=== PATIENT | male | born 1955 | race Caucasian/White ===

== ENCOUNTER 2017-05-30 12:39 | Emergency (ER) | payer OTHER ==
[2017-05-30 12:46] VITALS: BP 147/95
--- NOTE | 2017-05-30 14:03 | ED ---
Upper Extremity Pain - HPI Summary HPI Summary: Rt hand dominant pt here w/ injury to 5th digit last night while playing with his grandson - jammed it into a speaker. Tingling for 30 minutes after injury - recovered full sensation. Limited movement d/t pain, stiffness/swelling. Has not tried anything to help with sx yet. - History of Current Complaint Chief Complaint: EDExtremityUpper Stated Complaint: RT HAND/FINGER INJURY Time Seen by Provider: 05/30/17 13:41 Hx Obtained From: Patient - Allergies/Home Medications Allergies/Adverse Reactions: Allergies Allergy/AdvReac Type Severity Reaction Status Date / Time Penicillins [PCN] Allergy Unknown Verified 01/11/14 22:24 Reaction Details PMH/Surg Hx/FS Hx/Imm Hx Previously Healthy: Yes Endocrine/Hematology History: Denies: Hx Anticoagulant Therapy, Hx Blood Disorders, Hx Diabetes Cardiovascular History: Denies: Hx Hypertension, Hx Pacemaker/ICD Sensory History: Denies: Hx Hearing Aid Psychiatric History: Denies: Hx Panic Disorder - Surgical History Surgery Procedure, Year, and Place: WISDOM TEETH REMOVAL Infectious Disease History: No Infectious Disease History: Denies: Traveled Outside the in Last 30 Days - Social History 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 Lives: With Family Alcohol Use: Weekly Hx Substance Use: No Substance Use Type: Reports: None Hx Tobacco Use: No Smoking Status (MU): Never Smoked Tobacco Review of Systems Positive: no symptoms reported Musculoskeletal: Other - see HPI Positive: Bruising - see HPI Neurological: Other - see HPI Psychological: Normal All Other Systems Reviewed And Are Negative: Yes Physical Exam Triage Information Reviewed: Yes Vital Signs On Initial Exam: Initial Vitals Temp Pulse Resp BP Pulse Ox 98.0 F 70 20 147/95 98 05/30/17 12:42 05/30/17 12:42 05/30/17 12:42 05/30/17 12:42 05/30/17 12:42 Vital Signs Reviewed: Yes Appearance: Positive: Well-Appearing, No Pain Distress, Well-Nourished Skin: Positive: Warm, Dry - ecchymosis over palmar crease of MCP joint and PIP joint - edema of space between joints - no skin breakdown Head/Face: Positive: Normal Head/Face Inspection Eyes: Positive: EOMI ENT: Positive: Hearing grossly normal Respiratory/Lung Sounds: Positive: Breath Sounds Present Cardiovascular: Positive: Pulses are Symmetrical in both Upper and Lower Extremities Musculoskeletal: Positive: Strength/ROM Intact, Limited @ - Rt 5th phalange flexion of PIP and DIP - can move MCP joint, wrist, elbow w/o difficulty Neurological: Positive: Normal, Sensory/Motor Intact, Alert, Oriented to Person Place, Time, CN Intact II-III Psychiatric: Positive: Normal - [place] Coma Scale Coma Scale Total: 15 Diagnostics - Vital Signs Vital Signs Temp Pulse Resp BP Pulse Ox 05/30/17 12:42 98.0 F 70 20 147/95 98 - Laboratory Lab Statement: Any lab studies that have been ordered have been reviewed, and results considered in the medical decision making process. Course/Dx - Diagnoses Provider Diagnoses: Sprain of right little finger Discharge - Discharge Plan Condition: Stable Disposition: HOME Patient Education Materials: Finger Sprain (ED) Referrals: David Mata MD [Medical Doctor] - Additional Instructions: REST, ICE, ELEVATE Take ibuprofen with food for pain Wear splint until seen by PCP or orthopedics. Call today to schedule appointment for 1-2 weeks. *if you develop numbness, tingling, weakness, return to ED
--- NOTE | 2017-05-30 14:27 | RAD ---
Indication: Right fifth finger injury. 3 views of the right fifth digit demonstrates no fracture. No other bone or joint abnormality is identified. IMPRESSION: No fracture of the right fifth digit is noted.
== END 2017-05-30 15:01 | disposition home or self-care (01) ==
LOC: ED 12:39
DX: S63.616A Unspecified sprain of right little finger, initial encounter (principal); W22.8XXA Striking against or struck by other objects, initial encounter; Y93.9 Activity, unspecified; Y92.9 Unspecified place or not applicable; Y99.9 Unspecified external cause status
CPT/HCPCS: 73140; 99282

== ENCOUNTER 2017-10-09 23:00 | Observation (INO) | payer SELFPAY ==
[2017-10-10 00:10] LABS: ABS Basophils 0 10^3/ul (0-0.2); ABS Eosinophils 0.1 10^3/ul (0-0.6); ABS Monocytes 0.7 10^3/ul (0-0.8); ABS Nucleated RBC 0 10^3/ul; Eosinophil % 0.7 % (0-6); Hematocrit 41 % (42-52); Hemoglobin 13.9 g/dl (14.0-18.0); Lymphocyte % 11.9 % (25-47); Mean Corpuscular HGB Conc 34 g/dl (31-36); Mean Corpuscular Hemoglobin 30 pg (27-31); Mean Corpuscular Volume 89 fL (80-94); Mean Platelet Volume 8 um3 (7.4-10.4); Nucleated Red Blood Cells % 0.1; Platelet Count 233 10^3/ul (150-450); Red Blood Count 4.59 10^6/ul (4.0-5.4); Red Cell Distribution Width 13 % (10.5-15); White Blood Count 8.8 10^3/ul (3.5-10.8)
[2017-10-10 00:19] LABS: INR 1.02 (0.77-1.02)
[2017-10-10 00:29] LABS: EGFR Non-African American 88.6 (>60)
[2017-10-10] MEDS ORDERED: Acetaminophen TAB* 325 MG PO PRN (02:39)
[2017-10-10] MEDS ORDERED: Ondansetron INJ* 2 MG/ML VIAL IV PRN (02:39)
[2017-10-10] MEDS ORDERED: Melatonin (NF) 3 MG TAB PO PRN (02:39)
[2017-10-10] MEDS ORDERED: Albuterol 2.5 MG/3 ML NEB.SOL* (0.083%) INH PRN (02:39)
--- NOTE | 2017-10-10 03:04 | HP ---
H&P (Free Text) History and Physical: PCP: Altaf Beatty MD Date/Time: 10/10/2017 0230 CC: "passed out" HPI: Mr Rouse is a 62YO male without chronic medical conditions who was at home around 2200 talking with his girl friend when he suddenly became diaphoretic, pale, and passed out twice, each lasting 1-2 minutes. His girlfriend was able to rouse him via shaking. He recalls some light-headedness and vomited once after EMS arrived, but denies chest pain, SOB, or palpitations. The episode was associated with urinary incontinence and he had N/ T in all 4 extremities for a short time afterwards. His family HX is very concerning for a sister who passed of sudden cardiac at age 50. 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 FamHx: Father: CAD; Sister passed at 50 from sudden cardiac while talking on the phone ROS: as above, otherwise reviewed and all were negative vitals: Vital Signs Temp 36.7 C 10/10/17 03:43 Pulse 63 10/10/17 03:43 Resp 18 10/10/17 03:43 BP 96/53 10/10/17 03:43 Pulse Ox 98 10/10/17 03:43 Intake & Output 10/09/17 10/09/17 10/10/17 11:59 23:59 11:59 Weight 77.111 kg 75.523 kg Constitutional: NAD, normally developed, well-nourished white male HEENM: atraumatic; sclera/conjunctiva: anicteric/clear; hearing: clinically intact; oropharynx: clear, mucosa moist Neck: soft tissue: non-tender; thyroid: normal Pulmonary: clear to auscultation bilaterally, good aeration, no accessory muscle use CV: RR/RR, normal S1S2, no carotid bruit, no jugular venous distention, 2+ B DP/ PT, no edema Abdominal: soft, non-distended, non-tender, no rebound/guarding/rigidity, normoactive bowel sounds, no hepatosplenomegaly or masses, no costovertebral angle tenderness Musculoskeletal: general: grossly intact, no tenderness w/ palpation Integumental: normal appearance and texture of exposed skin Psychiatric orientation: AA&O to PPS affect: calm mood: cooperative eye contact: good content: reliable responses: timely insight: good Testing: Lab Results 10/10/17 10/10/17 10/10/17 Range/Units 00:00 00:00 00:00 WBC 8.8 (3.5-10.8) 10^3/ul RBC 4.59 (4.0-5.4) 10^6/ul Hgb 13.9 L (14.0-18.0) g/dl Hct 41 L (42-52) % MCV 89 (80-94) fL MCH 30 (27-31) pg MCHC 34 (31-36) g/dl RDW 13 (10.5-15) % Plt Count 233 (150-450) 10^3/ul MPV 8 (7.4-10.4) um3 Neut % (Auto) 79.4 (38-83) % Lymph % (Auto) 11.9 L (25-47) % [place] % (Auto) 7.7 H (0-7) % Eos % (Auto) 0.7 (0-6) % Baso % (Auto) 0.3 (0-2) % Absolute Neuts (auto) 7.0 (1.5-7.7) 10^3/ul Absolute Lymphs (auto) 1.0 (1.0-4.8) 10^3/ul Absolute Monos (auto) 0.7 (0-0.8) 10^3/ul Absolute Eos (auto) 0.1 (0-0.6) 10^3/ul Absolute Basos (auto) 0 (0-0.2) 10^3/ul Absolute Nucleated RBC 0 10^3/ul Nucleated RBC % 0.1 INR (Anticoag Therapy) 1.02 (0.77-1.02) APTT 29.6 (26.0-36.3) seconds Sodium 137 (133-145) mmol/L Potassium 3.4 L (3.5-5.0) mmol/L Chloride 105 (101-111) mmol/L Carbon Dioxide 26 (22-32) mmol/L Anion Gap 6 (2-11) mmol/L BUN 17 (6-24) mg/dL Creatinine 0.87 (0.67-1.17) mg/dL Est GFR ( Amer) 114.0 (>60) Est GFR (Non-Af Amer) 88.6 (>60) BUN/Creatinine Ratio 19.5 (8-20) Glucose 105 H (70-100) mg/dL Calcium 8.6 (8.6-10.3) mg/dL Magnesium 2.0 (1.9-2.7) mg/dL Total Bilirubin 0.50 (0.2-1.0) mg/dL AST 19 (13-39) U/L ALT 14 (7-52) U/L Alkaline Phosphatase 63 (34-104) U/L Troponin I 0.00 (<0.04) ng/mL B-Natriuretic Peptide ( - 100) pg/mL Total Protein 6.4 (6.4-8.9) g/dL Albumin 3.7 (3.2-5.2) g/dL Globulin 2.7 (2-4) g/dL Albumin/Globulin Ratio 1.4 (1-3) 10/10/17 Range/Units 00:00 WBC (3.5-10.8) 10^3/ul RBC (4.0-5.4) 10^6/ul Hgb (14.0-18.0) g/dl Hct (42-52) % MCV (80-94) fL MCH (27-31) pg MCHC (31-36) g/dl RDW (10.5-15) % Plt Count (150-450) 10^3/ul MPV (7.4-10.4) um3 Neut % (Auto) (38-83) % Lymph % (Auto) (25-47) % [place] % (Auto) (0-7) % Eos % (Auto) (0-6) % Baso % (Auto) (0-2) % Absolute Neuts (auto) (1.5-7.7) 10^3/ul Absolute Lymphs (auto) (1.0-4.8) 10^3/ul Absolute Monos (auto) (0-0.8) 10^3/ul Absolute Eos (auto) (0-0.6) 10^3/ul Absolute Basos (auto) (0-0.2) 10^3/ul Absolute Nucleated RBC 10^3/ul Nucleated RBC % INR (Anticoag Therapy) (0.77-1.02) APTT (26.0-36.3) seconds Sodium (133-145) mmol/L Potassium (3.5-5.0) mmol/L Chloride (101-111) mmol/L Carbon Dioxide (22-32) mmol/L Anion Gap (2-11) mmol/L BUN (6-24) mg/dL Creatinine (0.67-1.17) mg/dL Est GFR ( Amer) (>60) Est GFR (Non-Af Amer) (>60) BUN/Creatinine Ratio (8-20) Glucose (70-100) mg/dL Calcium (8.6-10.3) mg/dL Magnesium (1.9-2.7) mg/dL Total Bilirubin (0.2-1.0) mg/dL AST (13-39) U/L ALT (7-52) U/L Alkaline Phosphatase (34-104) U/L Troponin I (<0.04) ng/mL B-Natriuretic Peptide 22 ( - 100) pg/mL Total Protein (6.4-8.9) g/dL Albumin (3.2-5.2) g/dL Globulin (2-4) g/dL Albumin/Globulin Ratio (1-3) ECG, personally reviewed: NSR rate 64, no ischemia, QTc 419 CXR, personally reviewed: no acute pathology, R costal gutter not imaged CT brain WO, personally reviewed: no acute finding Impression: 62M presenting with recurrent syncope & family HX of sister w/ sudden cardiac DIAGNOSIS & PLAN Primary recurrent syncope : telemetry : check ECHO in AM : supportive care : consider cardiology consult in AM Admission Rational: observation for syncope work up DVTp: heparin SQ Code Status: full
--- NOTE | 2017-10-10 03:11 | ED ---
Dante Beltran Angela, scribed for Michael Arias on 10/09/17 at 2351 . Syncope/Near Syncope - HPI Summary HPI Summary: This pt is a 62 y/o male presenting to [facility] via EMS for 2 syncopal episodes today at approximately 22:00 today. Pt reports he was sitting on the couch after he finished dinner and dessert when he had a sudden onset of syncope. reports they had smoked a bowl of marijuana prior to pt's syncopal episode. Pt states he had used this same supply of marijuana before. Pt notes that prior to his syncope he felt like he was "hallucinating." went to bring the pt water and by the time she came back, pt had syncopized. states the pt had a syncopal episode for 1-2 minutes. Pt then woke up as was calling 911, but pt had a second syncopal episode that also lasted 1-2 minutes. Pt denies chest pain or SOB prior to or after these episodes. - History Of Current Complaint Hx Obtained From: Patient Onset/Duration: Sudden Onset, Resolved Timing: Minutes - 1-2 Context: Witnessed Activity At Onset: At Rest Associated Head Trauma: No Aggravating Factor(s): Nothing Alleviating Factor(s): Spontaneous Resolution Associated Signs And Symptoms: Negative - Allergies/Home Medications Allergies/Adverse Reactions: Allergies Allergy/AdvReac Type Severity Reaction Status Date / Time Penicillins Allergy Itching Verified 10/09/17 23:08 PMH/Surg Hx/FS Hx/Imm Hx Endocrine/Hematology History: Denies: Hx Anticoagulant Therapy, Hx Blood Disorders, Hx Diabetes Cardiovascular History: Denies: Hx Hypertension, Hx Pacemaker/ICD Sensory History: Denies: Hx Hearing Aid Psychiatric History: Denies: Hx Panic Disorder - Surgical History Surgery Procedure, Year, and Place: WISDOM TEETH REMOVAL - Immunization History Date of Tetanus Vaccine: utd Date of Influenza Vaccine: none Infectious Disease History: No Infectious Disease History: Denies: Traveled Outside the [place] in Last 30 Days - Family History Family History: No FHx of colon CA. - Social History Alcohol Use: Occasionally Hx Substance Use: No Substance Use Type: Reports: Marijuana Substance Use Comment - Amount & Last Used: smokes 3x/week, 1 bowl at a time Hx Tobacco Use: No Smoking Status (MU): Former Smoker Review of Systems Negative: Fever, Chills Negative: Chest Pain Negative: Shortness Of Breath Neurological: Other - "hallucinating" Positive: Syncope All Other Systems Reviewed And Are Negative: Yes Physical Exam - Summary Physical Exam Summary: Appearance: Well appearing, no pain distress Skin: warm, dry, reflects adequate perfusion Head/face: normal Eyes: EOMI, MARIO ENT: normal Neck: supple, nontender Respiratory: CTA, breath sounds present Cardiovascular: RRR, pulses symmetrical Abdomen: nontender, soft Bowel: present Musculoskeletal: normal, strength/ROM intact Neuro: normal, sensory motor intact, A&Ox3 Triage Information Reviewed: Yes Vital Signs On Initial Exam: Initial Vitals Temp Pulse Resp BP Pulse Ox 97.6 F 61 16 112/62 97 10/09/17 23:07 10/09/17 23:07 10/09/17 23:07 10/09/17 23:07 10/09/17 23:07 Vital Signs Reviewed: Yes - Andi Coma Scale Best Eye Response: 4 - Spontaneous Best Motor Response: 6 - Obeys Commands Best Verbal Response: 5 - Oriented Coma Scale Total: 15 Diagnostics - Vital Signs Vital Signs Temp Pulse Resp BP Pulse Ox 10/09/17 23:07 97.6 F 61 16 112/62 97 - Laboratory Lab Results: Lab Results 10/10/17 10/10/17 10/10/17 Range/Units 00:00 00:00 00:00 WBC 8.8 (3.5-10.8) 10^3/ul RBC 4.59 (4.0-5.4) 10^6/ul Hgb 13.9 L (14.0-18.0) g/dl Hct 41 L (42-52) % MCV 89 (80-94) fL MCH 30 (27-31) pg MCHC 34 (31-36) g/dl RDW 13 (10.5-15) % Plt Count 233 (150-450) 10^3/ul MPV 8 (7.4-10.4) um3 Neut % (Auto) 79.4 (38-83) % Lymph % (Auto) 11.9 L (25-47) % [place] % (Auto) 7.7 H (0-7) % Eos % (Auto) 0.7 (0-6) % Baso % (Auto) 0.3 (0-2) % Absolute Neuts (auto) 7.0 (1.5-7.7) 10^3/ul Absolute Lymphs (auto) 1.0 (1.0-4.8) 10^3/ul Absolute Monos (auto) 0.7 (0-0.8) 10^3/ul Absolute Eos (auto) 0.1 (0-0.6) 10^3/ul Absolute Basos (auto) 0 (0-0.2) 10^3/ul Absolute Nucleated RBC 0 10^3/ul Nucleated RBC % 0.1 INR (Anticoag Therapy) 1.02 (0.77-1.02) APTT 29.6 (26.0-36.3) seconds Sodium 137 (133-145) mmol/L Potassium 3.4 L (3.5-5.0) mmol/L Chloride 105 (101-111) mmol/L Carbon Dioxide 26 (22-32) mmol/L Anion Gap 6 (2-11) mmol/L BUN 17 (6-24) mg/dL Creatinine 0.87 (0.67-1.17) mg/dL Est GFR ( Amer) 114.0 (>60) Est GFR (Non-Af Amer) 88.6 (>60) BUN/Creatinine Ratio 19.5 (8-20) Glucose 105 H (70-100) mg/dL Calcium 8.6 (8.6-10.3) mg/dL Magnesium 2.0 (1.9-2.7) mg/dL Total Bilirubin 0.50 (0.2-1.0) mg/dL AST 19 (13-39) U/L ALT 14 (7-52) U/L Alkaline Phosphatase 63 (34-104) U/L Troponin I 0.00 (<0.04) ng/mL B-Natriuretic Peptide ( - 100) pg/mL Total Protein 6.4 (6.4-8.9) g/dL Albumin 3.7 (3.2-5.2) g/dL Globulin 2.7 (2-4) g/dL Albumin/Globulin Ratio 1.4 (1-3) 10/10/17 Range/Units 00:00 WBC (3.5-10.8) 10^3/ul RBC (4.0-5.4) 10^6/ul Hgb (14.0-18.0) g/dl Hct (42-52) % MCV (80-94) fL MCH (27-31) pg MCHC (31-36) g/dl RDW (10.5-15) % Plt Count (150-450) 10^3/ul MPV (7.4-10.4) um3 Neut % (Auto) (38-83) % Lymph % (Auto) (25-47) % [place] % (Auto) (0-7) % Eos % (Auto) (0-6) % Baso % (Auto) (0-2) % Absolute Neuts (auto) (1.5-7.7) 10^3/ul Absolute Lymphs (auto) (1.0-4.8) 10^3/ul Absolute Monos (auto) (0-0.8) 10^3/ul Absolute Eos (auto) (0-0.6) 10^3/ul Absolute Basos (auto) (0-0.2) 10^3/ul Absolute Nucleated RBC 10^3/ul Nucleated RBC % INR (Anticoag Therapy) (0.77-1.02) APTT (26.0-36.3) seconds Sodium (133-145) mmol/L Potassium (3.5-5.0) mmol/L Chloride (101-111) mmol/L Carbon Dioxide (22-32) mmol/L Anion Gap (2-11) mmol/L BUN (6-24) mg/dL Creatinine (0.67-1.17) mg/dL Est GFR ( Amer) (>60) Est GFR (Non-Af Amer) (>60) BUN/Creatinine Ratio (8-20) Glucose (70-100) mg/dL Calcium (8.6-10.3) mg/dL Magnesium (1.9-2.7) mg/dL Total Bilirubin (0.2-1.0) mg/dL AST (13-39) U/L ALT (7-52) U/L Alkaline Phosphatase (34-104) U/L Troponin I (<0.04) ng/mL B-Natriuretic Peptide 22 ( - 100) pg/mL Total Protein (6.4-8.9) g/dL Albumin (3.2-5.2) g/dL Globulin (2-4) g/dL Albumin/Globulin Ratio (1-3) Result Diagrams: 10/10/17 00:00 10/10/17 00:00 Lab Statement: Any lab studies that have been ordered have been reviewed, and results considered in the medical decision making process. - Radiology Chest XR Xray Interpretation: No Acute Changes - negative chest XR. Radiology Interpretation Completed By: Radiologist - CT Brain CT CT Interpretation: No Acute Changes - IMPRESSION: Normal brain for age. No acute intracranial abnormality. No hemorrhage. No visible infarct or mass. Osseous structures are intact. Dr. Arias has reviewed this radiology report. CT Interpretation Completed By: Radiologist - EKG 23:53 Cardiac Rate: NL EKG Rhythm: Sinus Rhythm - at 64 bpm EKG Interpretation: No acute changes. Course/Dx Course Of Treatment: Pt is a 62 y/o male who presents with 2 syncopal episodes today at approximately 22:00. Pt reports he had smoked marijuana prior to episodes and was at rest at onset. Bloodwork, CT brain, and chest XR were obtained. Images are all negative. I discussed pt care with Dr. Clements, hospitalist, who has agreed to admit the pt. - Diagnoses Differential Diagnosis/HQI/PQRI: Positive: Cerebral Vascular Accident, Dysrhythmia, Hyperventilation, Myocardial Infarction, Seizure, Transient Ischemic Attack, Vasovagal Episode Provider Diagnoses: Syncope - Physician Notifications Discussed Care of Patient With: Lavell Clements Time Discussed With Above Provider: 01:31 Instructed by Provider To: Other - I discussed pt care with Dr. Clements, hospitalist, who has agreed to admit the pt. Discharge - Discharge Plan Condition: Stable Disposition: ADMITTED TO [facility] documentation as recorded by the Dante beaver Angela accurately reflects the service I personally performed and the decisions made by , Michael Arias.
[2017-10-10] MEDS: NS 0.9% 1000 ML* 1,000 ML IV SCH ×2 (04:01→13:04)
[2017-10-10] MEDS ORDERED: Omeprazole CAP* 20 MG PO SCH (06:00)
[2017-10-10 06:55] LABS: Hematocrit 41 % (42-52); Mean Corpuscular HGB Conc 34 g/dl (31-36); Mean Corpuscular Hemoglobin 30 pg (27-31); Mean Corpuscular Volume 89 fL (80-94); Mean Platelet Volume 8 um3 (7.4-10.4); Platelet Count 239 10^3/ul (150-450); Red Blood Count 4.59 10^6/ul (4.0-5.4); Red Cell Distribution Width 13 % (10.5-15); White Blood Count 6.7 10^3/ul (3.5-10.8)
[2017-10-10 07:08] LABS: EGFR Non-African American 96.2 (>60)
[2017-10-10] MEDS: Docusate CAP* 100 MG PO SCH ×2 (07:47→19:22)
--- NOTE | 2017-10-10 07:53 | RAD ---
Indication: Syncope. Single frontal view of the chest performed at 0048 hours was reviewed. No prior study is available for comparison. No mediastinal shift is noted. Heart is of normal size and configuration. Lung souza appear clear. IMPRESSION: NO ACTIVE CARDIOPULMONARY DISEASE IS NOTED.
--- NOTE | 2017-10-10 08:45 | RAD ---
Indication: Syncope. CT of the brain was performed without IV contrast. Ventricular structures are midline. No midline shift is noted. The extra-axial spaces are unremarkable. There is no evidence of intracranial mass or hemorrhage. No other high or low density lesions are identified. Mastoid air cells and paranasal sinuses are otherwise unremarkable. Bony calvaria is otherwise unremarkable. IMPRESSION: No intracranial mass or hemorrhage is noted.
--- NOTE | 2017-10-10 11:24 | ECHO ---
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 Technical Comments: The study quality is fair. Completed at 0850. Left Ventricle: The left ventricular chamber size is normal. There is no left ventricular hypertrophy. Global left ventricular wall motion and contractility are within normal limits. There is normal left ventricular systolic function. The estimated ejection fraction is 55-60%. Normal left ventricular diastolic filling is observed. Left Atrium: The left atrium is mildly dilated. Right Ventricle: The right ventricular chamber size and systolic function are within normal limits. Right Atrium: The right atrium is mildly dilated. Aortic Valve: The aortic valve is trileaflet. The aortic valve leaflets are mildly thickened. There is a trace of aortic regurgitation. There is no evidence of aortic stenosis. Mitral Valve: Mild mitral annular calcification present. The mitral valve leaflets are mildly thickened. There is mild mitral regurgitation. There is no evidence of mitral stenosis. Tricuspid Valve: The tricuspid valve leaflets are normal. There is mild tricuspid regurgitation. No pulmonary hypertension is noted. There is no tricuspid stenosis. Pulmonic Valve: The pulmonic valve appears normal. There is a trace pulmonic regurgitation. There is no pulmonic stenosis. Pericardium: There is no significant pericardial effusion. Aorta: There is no dilatation of the aortic arch. The aortic root is normal in size. Pulmonary Artery: The main pulmonary artery is not well visualized. Venous: The inferior vena cava appears normal in size. There is a greater than 50% respiratory change in the inferior vena cava dimension. Conclusions The left ventricular chamber size is normal. There is no left ventricular hypertrophy. Global left ventricular wall motion and contractility are within normal limits. There is normal left ventricular systolic function. The estimated ejection fraction is 55-60%. The left atrium is mildly dilated. The right ventricular chamber size and systolic function are within normal limits. No more than mild valvular regurgitation noted. No prior studies available for comparison at time of interpretation. Measurements Name Value Normal Range RVIDd (AP) 2D 3.2 cm (0.9 - 2.6) RVDdMajor (2D) 3.8 cm (2.2 - 4.4) RAd ISD 4CH 5.4 cm (3.4 - 4.9) RA (A4C)W 3.8 cm (2.9 - 4.6) IVSd (2D) 1 cm (0.6 - 1) LVPWd (2D) 0.8 cm (0.6 - 1) LVIDd (2D) 5 cm (3.6 - 5.4) LVIDs (2D) 3.6 cm - LV FS (2D) 28 % (25 - 45) Aortic Annulus 1.9 cm (1.4 - 2.6) Ao root diameter (2D) 3.3 cm (2.1 - 3.5) Ascending Ao 3.5 cm (2.1 - 3.4) Aortic arch 2.7 cm (1.8 - 3.4) LA dimension (AP) 2D 3.3 cm (2.3 - 3.8) LAd ISD 4CH 5.1 cm (2.9 - 5.3) LA ISD 4CH W 4.6 cm (2.5 - 4.5) Name Value Normal Range LA ESV SP 4CH (A/L) 52 ml - LA ESV SP 2CH (A/L) 102 ml - LA ESV BP (A/L) 84 ml - LA ESV BP (A/L) index 45 ml/m2 - LA ESV SP 4CH (MOD) 42 ml - LA ESV SP 2CH (MOD) 96 ml - Name Value Normal Range MV E-wave Vmax 0.86 m/sec - MV deceleration time 192.3 msec - MV A-wave Vmax 0.5 m/sec - MV E:A ratio 1.46 ratio - LV septal e' Vmax 0.1 m/sec - LV lateral e' Vmax 0.11 m/sec - LV E:e' septal ratio 8.6 ratio - LV E:e' lateral ratio 7.82 ratio - Name Value Normal Range AV Vmax 1.2 m/sec - AV VTI 27.16 cm - AV peak gradient 5.55 mmHg - AV mean gradient 3.13 mmHg - LVOT Vmax 0.93 m/sec - LVOT VTI 22.09 cm - LVOT peak gradient 3.5 mmHg - LVOT mean gradient 1.95 mmHg - TATYANA Vmax 0.93 m/sec - Name Value Normal Range TR Vmax 2.1 m/sec - TR peak gradient 18 mmHg - RAP 3 mmHg - RVSP 21 mmHg - IVC diameter 2.1 cm - Name Value Normal Range PV Vmax 0.71 m/sec - PV peak gradient 2.06 mmHg -
--- NOTE | 2017-10-10 20:14 | PN ---
Subjective Date of Service: 10/10/17 Interval History: No complaints at all denies CP, SOB, N/V, abdominal pain, diarrhea, F/C, Palpitations, dizziness, presyncope, abnormal movements, or other pain. Family History: Unchanged from Admission Social History: Unchanged from Admission Past Medical History: Unchanged from Admission Objective Active Medications: Acetaminophen (Tylenol Tab*) 650 mg PO Q6H PRN PRN Reason: FEVER/PAIN Albuterol (Ventolin 2.5 Mg/3 Ml Neb.Chela*) 2.5 mg INH Q2H PRN PRN Reason: SOB/WHEEZING Aspirin (Aspirin Ec Low Dose*) 81 mg PO DAILY [facility] Docusate Sodium (Colace Cap*) 200 mg PO BID [facility] Last Admin: 10/10/17 19:22 Dose: Not Given Heparin Sodium (Porcine) (Heparin Vial(*)) 5,000 units SUBCUT Q8HR [facility] Melatonin (Melatonin (Nf)) 3 mg PO BEDTIME PRN; Protocol PRN Reason: Sleep Omeprazole (Prilosec Cap*) 20 mg PO DAILY@0600 [facility] Last Admin: 10/10/17 04:55 Dose: 20 mg Ondansetron HCl (Zofran Inj*) 4 mg IV Q6H PRN PRN Reason: NAUSEA Vital Signs - 8 hr 10/10/17 15:48 Temperature 99.2 F Pulse Rate 70 Respiratory 18 Rate Blood Pressure 126/77 (mmHg) O2 Sat by Pulse 99 Oximetry Oxygen Devices in Use Now: None Appearance: Patient is a 62yo male who appears stated age and is sitting in the bed in [facility]. Eyes: No Scleral Icterus, PERRLA Ears/Nose/Mouth/Throat: NL Teeth, Lips, Gums, Clear Oropharnyx, Mucous Membranes Moist Neck: NL Appearance and Movements; NL JVP, Trachea Midline, No Thyroid Enlargement, Masses Respiratory: Symmetrical Chest Expansion and Respiratory Effort, Clear to Auscultation Cardiovascular: NL Sounds; No Murmurs; No JVD, RRR, No Edema Abdominal: NL Sounds; No Tenderness; No Distention, No Hepatosplenomegaly Lymphatic: No Cervical Adenopathy Extremities: No Edema, No Clubbing, Cyanosis Skin: No Rash or Ulcers, No Nodules or Sclerosis Neurological: Alert and Oriented x 3, NL Sensation, NL Muscle Strength and Tone , - - CN II-XII intact Result Diagrams: 10/10/17 06:09 10/10/17 06:09 Additional Lab and Data: Lab Results Assess/Plan/Problems-Billing Assessment: Patient is a 62yo male with no significant PMH who presents after 2 episodes of syncope with no prodromal symptoms. Patient has a FH of Sudden cardiac but has been asymptomatic. - Patient Problems (1) Syncope Current Visit: Yes Status: Acute Code(s): R55 - SYNCOPE AND COLLAPSE SNOMED Code(s): 449810855 Comment: Patient had 2 episodes of syncope with a small period of lucidity in between. No palpitations or prodromal symptoms. Patient had recently smoked marijuana but does this frequently and has not had an episode like this before. Sister did at 50 of Sudden Cardiac of no known cause found on autopsy. Differential includes heritable cardiac defect predisposing to fatal arrhythmia. Echo unremarkable. Telemetry unremarkable. Cardiology consult pending. Small likelyhood that this is a seizure and patient's sister of SUDEP. EEG pending. (2) DVT prophylaxis Current Visit: Yes Status: Acute Code(s): MCE3821 - SNOMED Code(s): 973197570 Comment: Heparin SubQ (3) Full code status Current Visit: Yes Status: Acute Code(s): Z78.9 - OTHER SPECIFIED HEALTH STATUS SNOMED Code(s): 058401042 Status and Disposition: Patient is admitted observation.
--- NOTE | 2017-10-10 21:20 | CONSULT ---
Subjective Date of Service: 10/10/17 Interval History: Admission Date: 10/10/17 Date of consult 10/10/2017 Service: Hospitalist PCP : Altaf Beatty MD CC : "passed out" Reason for consult: Loss of consciousness. HPI : Mr Rouse is a 62 year old man currently without medical insurance but had been seeing Dr. Beatty previously. 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 He readily admits to not drinking enough water. He denies any history of syncope or seizures. He had smoked 4 inhalations marijuana 7 pm last night, ate dinner, was on couch stated "I'm hallucinating" felt room shifting, blurry vision, lightheaded, nausea, dizziness , cold sweats. noticed he looked grayy had syncope, awoke and then had another episode. No chest pain then or any other time and no palpitations. Urinated self. Each episode lated about about a minute. Still felt very unwell , went outside and vomited and overall felt significantly better afterwards. 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[employer]; full code status PMedHx Essentially no diagnosed major medical problems Allergies Penicillins Allergy (Verified 10/09/17 23:08) Itching PSurgHx B carpal tunnel release Medications Active Medications: Acetaminophen (Tylenol Tab*) 650 mg PO Q6H PRN PRN Reason: FEVER/PAIN Albuterol (Ventolin 2.5 Mg/3 Ml Neb.Chela*) 2.5 mg INH Q2H PRN PRN Reason: SOB/WHEEZING Aspirin (Aspirin Ec Low Dose*) 81 mg PO DAILY [facility] Docusate Sodium (Colace Cap*) 200 mg PO BID [facility] Last Admin: 10/10/17 19:22 Dose: Not Given Heparin Sodium (Porcine) (Heparin Vial(*)) 5,000 units SUBCUT Q8HR [facility] Melatonin (Melatonin (Nf)) 3 mg PO BEDTIME PRN; Protocol PRN Reason: Sleep Omeprazole (Prilosec Cap*) 20 mg PO DAILY@0600 [facility] Last Admin: 10/10/17 04:55 Dose: 20 mg Ondansetron HCl (Zofran Inj*) 4 mg IV Q6H PRN PRN Reason: NAUSEA Home Medications: NK [No Home Medications Reported] 10/10/17 [History Confirmed 10/10/17] Review of Systems - Measurements Intake and Output: Intake and Output Last 24 Hours 10/08/17 10/09/17 10/10/17 10/11/17 06:59 06:59 06:59 06:59 Intake Total 0 2562 Balance 0 2562 Weight 166 lb 8 oz Intake: IV Fluids 1482 Oral 0 1080 Other: # Bowel Movements 0 # Voids 0 - Review of Systems Constitutional Symptoms: Negative: Weight Gain, Weight Loss, Weakness, Fatigue, Fever, Night Sweats Dermatology: Negative: Rash, Skin Lesions HEENT: Negative: Change in Hearing, Tinnitus Eyes: Negative: Change in Vision, Double Vision Thyroid: Negative: Goiter, Tremor, Frequent Defecation, Constipation, Palpitations, Primary Hypothyroidism, Primary Hyperthyroidism, Weight Loss, Weight Gain Pulmonary: Negative: Cough, Sputum, Hemoptysis, Wheezing, Respiratory Distress, Shortness of Breath, COPD, Asthma, Exercise Intolerance, Home Oxygen Cardiology: Positive: Syncope Negative: Chest Pain, Shortness of Breath, Palpitations, Swelling of Ankles, Peripheral Vascular Dis, Edema, Faintness, Claudication, Paroxysmal Nocturnal Dyspnea, Orthopnea Gastroenterology: Positive: Vomiting Negative: Abdominal Pain, Nausea, Anorexia, Difficulty Swallowing, Heartburn , Constipation, Diarrhea, Blood in Stools, Change in Bowel Habits, Haematemesis , Melena Genital - Urinary: Negative: Dysuria, Hematuria Musculoskeletal: Negative: Joint Pain, Joint Stiffness Endocrinology: Negative: Thyroid Problems, Obesity, Diabetes, Hyperglycemia, Hypoglycemia, Polydipsia, Polyuria Hematologic/Lymphatic: Negative: Hx Leukemia, Hx Lymphoma, Use of Anticoagulant, Use of Antiplatelet Drugs Neurology: Negative: Headaches, Migraines, Change in Vision, Diplopia, Change in Balancing, Change in Coordination, Change in Memory, Change in Speech, Change in Sphincter Function, Change in Walking, Numbness\\Paresthesiae, Hx of Stroke\\ TIA Psychiatry: Negative: Unusual Anxiety, Suicidal Ideation, Hypomania Allergic/Immunologic: Negative: Hx HIV, Immunocompromise Review of Systems Statement: All other review of systems negative, unless stated above. Objective Vital Signs: Temp Pulse Resp BP Pulse Ox 99.2 F 70 18 126/77 99 10/10/17 15:48 10/10/17 15:48 10/10/17 15:48 10/10/17 15:48 10/10/17 15:48 Oxygen Devices in Use Now: None Appearance: nad, pleasant Ears/Nose/Mouth/Throat: Clear Oropharnyx, Mucous Membranes Moist Neck: NL Appearance and Movements; NL JVP, Trachea Midline Respiratory: Symmetrical Chest Expansion and Respiratory Effort, Clear to Auscultation Cardiovascular: NL Sounds; No Murmurs; No JVD, RRR, No Edema Abdominal: NL Sounds; No Tenderness; No Distention Extremities: No Edema, No Clubbing, Cyanosis Skin: No Rash or Ulcers Neurological: Alert and Oriented x 3 Laboratory Results: 10/10/17 06:09 10/10/17 06:09 INR (Anticoag Therapy) 1.02 (0.77-1.02) 10/10/17 00:00 APTT 29.6 seconds (26.0-36.3) 10/10/17 00:00 Total Bilirubin 0.50 mg/dL (0.2-1.0) 10/10/17 00:00 AST 19 U/L (13-39) 10/10/17 00:00 ALT 14 U/L (7-52) 10/10/17 00:00 Alkaline Phosphatase 63 U/L (34-104) 10/10/17 00:00 B-Natriuretic Peptide 22 pg/mL (-100) 10/10/17 00:00 Total Protein 6.4 g/dL (6.4-8.9) 10/10/17 00:00 Albumin 3.7 g/dL (3.2-5.2) 10/10/17 00:00 Globulin 2.7 g/dL (2-4) 10/10/17 00:00 Albumin/Globulin Ratio 1.4 (1-3) 10/10/17 00:00 10/10/17 06:09 Troponin I 0.00 Diagnostic Imaging: Echocardiogram 10/10/2017: Normal LV size, thickness and function LVEF 55-60%, mild LA dilation, normal RV size and function, no more than mild valvular regurgitation noted Telemetry: No arrhythmias EKG : NSR, normal EKG EEG 10/10/2017: Normal EEG CT 10/09/2017 head: No acute findings Assessment/Plan Evaluation as above unremarkable and history other than urinating self during episode and his family history of sudden in his sister is more consistent with neurocardiogenic syncope. We talked a long time today, including with his cousin Yao who is a surgeon while on speaker phone, the nature of his syncope, some uncertainties involved. We talked about the possibility of an EP study although I would be concerned with positive results unrelated to his presentation. We also talked about implanting a linq monitor for continuous rhythm monitoring. He is comfortable with and requesting to go home at this point. He will follow up for further discussion regarding this.
[2017-10-10 21:38] VITALS: BP 116/66
--- NOTE | 2017-10-10 23:02 | DS ---
Date of Admission: 08/09/2018 Date of Discharge: 08/09/2013 Discharge Diagnoses Syncope Marijuana use HPI Mr Rouse is a 62YO male without chronic medical conditions who was at home around 2200 talking with his girl friend when he suddenly became diaphoretic, pale, and passed out twice, each lasting 1-2 minutes. His girlfriend was able to rouse him via shaking. He recalls some light-headedness and vomited once after EMS arrived, but denies chest pain, SOB, or palpitations. The episode was associated with urinary incontinence and he had N/T in all 4 extremities for a short time afterwards. His family HX is very concerning for a sister who passed of sudden cardiac at age 50. Hospital Course Mr Rouse was observed without telemetry abnormality, further syncopal episode , or other complaints. He was evaluated by Cheyenne Garcia DO cardiology who recommended outpatient follow up for consideration of further testing once he has his insurance set up which is advised to be as soon as possible. Discharge Exam Vital Signs Temp 36.7 C 10/10/17 19:39 Pulse 63 10/10/17 19:39 Resp 22 10/10/17 19:39 BP 116/66 10/10/17 19:39 Pulse Ox 97 10/10/17 19:39 General: WNWD white male lying in bed reading to his girlfriend, NAD Lungs: CTAB, normal effort CV: RRR, normal S1S2 Abdomen: SNTNT, NABS, no RGR Extremities: W&D, no edema Integument: no rash/lesion Neurologic: grossly non-focal Psychiatric: AA&O to PPS, normal affect, pleasant and appropriate Radiology Exams CXR: IMPRESSION: NO ACTIVE CARDIOPULMONARY DISEASE IS NOTED. CT brain WO: IMPRESSION: No intracranial mass or hemorrhage is noted. ECHO: Conclusions: The left ventricular chamber size is normal. There is no left ventricular hypertrophy. Global left ventricular wall motion and contractility are within normal limits. There is normal left ventricular systolic function. The estimated ejection fraction is 55-60%. The left atrium is mildly dilated. The right ventricular chamber size and systolic function are within normal limits. No more than mild valvular regurgitation noted. No prior studies available for comparison at time of interpretation. Discharge Medications NEW none RESUME none STOP n/a Discharge Activity: as tolerated, advised cessation of marijuana Discharge Diet: regular, as tolerated Follow Up/CC establish with PCP Cheyenne Garcia, DO cardiology for consideration of further evaluation Time for Discharge: <30min
--- NOTE | 2017-10-11 03:38 | EEG ---
ELECTROENCEPHALOGRAPHY REPORT: DATE OF STUDY: - ROOM #[id number] DATE OF DICTATION: 10/10/17 PATIENT OF: Dr. Navarro. HISTORY: This is a 62-year-old man who is evaluated for a possible syncopal episode versus seizures. MEDICATIONS: Include: 1. Docusate. 2. Omeprazole. 3. Aspirin. 4. Albuterol. 5. Acetaminophen. 6. Melatonin. REPORT: With the patient awake, background cerebral activity consists of moderate amplitude, posterior dominant 9 Hz rhythm, which attenuates with eye opening, reappears with eye closure. Neither hyperventilation nor photic stimulation were performed. The patient's sleep background consists of diffuse irregular delta and theta activity. Normal patterns of sleep including symmetric sleep spindles were noted. No epileptiform potentials, focal abnormalities, or major asymmetries of background are noted. CLINICAL IMPRESSION: This awake and this sleep EEG is within normal limits. [id number]/CPS #: [id number] MTDD
[2017-10-11] MEDS ORDERED: Heparin VIAL(*) 5000 UNITS/ML VIAL (FIVE THOUSAND) SUBCUT SCH (06:00)
[2017-10-11] MEDS ORDERED: Aspirin EC Low Dose* 81 MG TAB.EC PO SCH (09:00)
== END 2017-10-10 23:20 | disposition home or self-care (01) ==
LOC: ED 23:00 → MEDTELE 10-10 02:35
PROVIDERS: ADMIT Hospitalist; ATTEND Hospitalist
DX: R55 Syncope and collapse (principal); F12.90 Cannabis use, unspecified, uncomplicated; Z88.0 Allergy status to penicillin; Z87.891 Personal history of nicotine dependence; I51.7 Cardiomegaly; Z79.82 Long term (current) use of aspirin; Z79.899 Other long term (current) drug therapy
CPT/HCPCS: 36415; 70450; 71045; 80048; 80053; 83735; 83880; 84484; 85025; 85027; 85610; 85730; 93005; 93306; 95819; 96360; 96361; 99284; A9270-GY; G0378

== ENCOUNTER 2019-05-23 15:18 | Emergency (ER) | payer BC ==
[2019-05-23 15:30] VITALS: BP 119/75
--- NOTE | 2019-05-23 16:02 | UC ---
Skin Complaint HPI - HPI Summary HPI Summary: 64-year-old male presents with complaints of area of an erythematous, pruritic, tender lesion to his posterior left upper leg that started yesterday. States it has increased in size since he first noticed. Today he noticed there were some small fluid-filled lesions overtop of the area of erythema. No history of MRSA. Denies fever, chills, or drainage. - History of Current Complaint Chief Complaint: UCSkin Time Seen by Provider: 05/23/19 15:56 Stated Complaint: SKIN COMPLAINT Hx Obtained From: Patient Pain Intensity: 2 - Allergy/Home Medications Allergies/Adverse Reactions: Allergies Allergy/AdvReac Type Severity Reaction Status Date / Time Penicillins Allergy Severe Itching Verified 05/23/19 15:31 PMH/Surg Hx/FS Hx/Imm Hx Previously Healthy: Yes - Denies significant PMH Other History Of: Negative For: Anticoagulant Therapy - Surgical History Surgical History: Yes Surgery Procedure, Year, and Place: 2 WISDOM TEETH REMOVAL - Family History Known Family History: Positive: Non-Contributory - Social History Occupation: Employed Full-time Lives: Alone Alcohol Use: Occasionally Substance Use Type: Marijuana Substance Use Comment - Amount & Last Used: smokes 3x/week, 1 bowl at a time Smoking Status (MU): Former Smoker Review of Systems All Other Systems Reviewed And Are Negative: Yes Constitutional: Negative: Fever, Chills Skin: Positive: Other - See HPI Respiratory: Positive: Negative Cardiovascular: Positive: Negative Gastrointestinal: Positive: Negative Genitourinary: Positive: Negative Musculoskeletal: Positive: Negative Neurological: Positive: Negative Is Patient Immunocompromised?: No Physical Exam - Summary Physical Exam Summary: GENERAL APPEARANCE: Well developed, well nourished, alert and cooperative, and appears to be in no acute distress. CARDIAC: Normal S1 and S2. No S3, S4 or murmurs. Rhythm is regular. There is no peripheral edema, cyanosis or pallor. Extremities are warm and well perfused. Capillary refill is less than 2 seconds. Peripheral pulses intact. LUNGS: Clear to auscultation without rales, rhonchi, wheezing or diminished breath sounds. ABDOMEN: Positive bowel sounds. Soft, nondistended, nontender. No guarding or rebound. No masses or hepatosplenomegally. MUSKULOSKELETAL: ROM intact to all extremities. No joint erythema or tenderness. Normal muscular development. Normal gait. SKIN: Skin normal color, texture and turgor. 1.5 cm x 2.5 cm area of erythema, induration, and vesicular lesions to the mid, posterior, left upper leg. No fluctuance or drainage noted. Triage Information Reviewed: Yes Vital Signs: Initial Vital Signs Temp 98.8 F 05/23/19 15:24 Pulse 78 05/23/19 15:24 Resp 17 05/23/19 15:24 BP 119/75 05/23/19 15:24 Pulse Ox 98 05/23/19 15:24 Vital Signs Reviewed: Yes Course/Dx - Course Course Of Treatment: 64-year-old male presents with complaints of area of an erythematous, pruritic, tender lesion to his posterior left upper leg that started yesterday. States it has increased in size since he first noticed. Today he noticed there were some small fluid-filled lesions overtop of the area of erythema. No history of MRSA. Denies fever, chills, or drainage. afebrile. Vital signs stable. Patient had a 1.5 cm x 2.5 cm area of erythema, induration, and vesicular lesions to the mid, posterior, left upper leg. No fluctuance or drainage noted. The remainder of exam was unremarkable. Will treat for a right upper leg cellulitis and cover for possible MRSA with Bactrim DS 1 tablet twice a day 7 days. Patient is to follow-up with his primary care provider in 3 days if symptoms do not improve. Anticipatory guidance and warning symptoms are reviewed with the patient. Verbalizes understanding and agrees with plan of care. - Differential Diagnoses - Skin Complaint Differential Diagnoses: Allergic Reaction, Cellulitis, Contact Dermatitis, Local Allergic Reaction, MRSA - Diagnoses Provider Diagnosis: Cellulitis of left leg Discharge ED - Sign-Out/Discharge Documenting (check all that apply): Patient Departure All imaging exams completed and their final reports reviewed: No Studies - Discharge Plan Condition: Stable Disposition: HOME Prescriptions: Sulfamethox/Trimethoprim DS* [Bactrim DS 800/160 TAB*] 1 tab PO BID #14 tab Patient Education Materials: Cellulitis (ED) Referrals: Mark Beatty MD [Primary Care Provider] - 3 Days Additional Instructions: The spot on your leg appears to be an infection of the skin called cellulitis. Start Bactrim DS 1 tablet twice a day for 7 days. Follow-up with your primary care provider in 3 days if symptoms are not improving. Seek immediate medical attention if you develop a fever greater than 100.5 F, the redness rapidly spreads, have increased swelling, severe pain that is not managed with [id number] pain medication, or any worsening of symptoms. - Billing Disposition and Condition Condition: STABLE Disposition: Home
== END 2019-05-23 16:15 | disposition home or self-care (01) ==
LOC: UCEAST 15:18
DX: L03.116 Cellulitis of left lower limb (principal); Z88.0 Allergy status to penicillin; Z87.891 Personal history of nicotine dependence
CPT/HCPCS: 99212; G0463